=== PATIENT | female | born 1965 | race Caucasian/White ===

== ENCOUNTER 2021-06-15 19:50 | Emergency (ER) | payer MEDICAID ==
[~2021-06-15] VITALS: Ht 160 cm; Wt 63.3 kg
[2021-06-15 20:18] VITALS: BP 126/82
--- NOTE | 2021-06-15 20:40 | NUR ---
Patient/Caregiver given discharge instructions and they have confirmed that they understand the instructions. Patient ambulatory with steady gait. NAD, all questions answered appropriately, denies additional needs at this time. No personal belongings left in room after discharge.
== END 2021-06-15 21:26 | disposition home or self-care (01) ==
LOC: ED 20:25
DX: H65.02 Acute serous otitis media, left ear (principal); J30.9 Allergic rhinitis, unspecified
CPT/HCPCS: 99283

== ENCOUNTER 2021-06-25 15:13 | Emergency (ER) | payer MEDICAID ==
[~2021-06-25] VITALS: Ht 162.6 cm; Wt 62.5 kg
[2021-06-25 15:19] VITALS: BP 117/58
[2021-06-25] MEDS ORDERED: IBUPROFEN 600 MG TABLET PO ONE (15:30)
[2021-06-25] MEDS ORDERED: IBUPROFEN 600 MG TABLET ONE (15:34)
== END 2021-06-25 15:38 | disposition home or self-care (01) ==
LOC: ED 15:20
DX: M26.622 Arthralgia of left temporomandibular joint (principal); Z88.0 Allergy status to penicillin
CPT/HCPCS: 99282